=== PATIENT | male | born 1980 | race Caucasian/White ===

== ENCOUNTER 2017-08-14 14:39 | Inpatient (IN) | payer BC ==
[2017-08-14] MEDS ORDERED: RX INFO: IV CONTRAST WAS GIVEN 1 EACH MISC MISCELLANE PRN (15:39)
[2017-08-14] MEDS ORDERED: SODIUM CHLORIDE 0.9% 1,000 ML IV STA (15:39)
--- NOTE | 2017-08-14 15:42 | ED ---
General Adult HPI - General Chief complaint: Abdominal Pain Stated complaint: Abdominal pain Time Seen by Provider: 08/14/17 15:23 Source: patient, RN notes reviewed Mode of arrival: ambulatory Limitations: no limitations - History of Present Illness Initial comments: Patient is a pleasant 37-year-old male presenting to the emergency Department with abdominal discomfort. Patient did go to urgent care and was advised to come to emergency department for further evaluation. Patient has had no appetite since this morning. No nausea vomiting. Patient has had abdominal discomfort that started mild and has progressively worsened. Patient does have some improvement after Toradol by urgent care. Discomfort was more in the umbilical region however is now more right lower abdomen. No fever. Discomfort is positional. - Related Data Home Medications Medication Instructions Recorded Confirmed No Known Home Medications [No 08/14/17 08/14/17 Known Home Medications] Allergies Allergy/AdvReac Type Severity Reaction Status Date / Time ciprofloxacin [From Cipro] Allergy Unknown Verified 08/14/17 15:55 Review of Systems ROS Statement: Those systems with pertinent positive or pertinent negative responses have been documented in the HPI. ROS Other: All systems not noted in ROS Statement are negative. Constitutional: Denies: fever, chills Eyes: Denies: eye pain ENT: Denies: ear pain Respiratory: Denies: cough, dyspnea Cardiovascular: Denies: chest pain Endocrine: Denies: fatigue Gastrointestinal: Reports: abdominal pain. Denies: nausea, vomiting, diarrhea, constipation Genitourinary: Denies: dysuria, hematuria Musculoskeletal: Denies: back pain Skin: Denies: rash Neurological: Denies: weakness Past Medical History History of Any Multi-Drug Resistant Organisms: None Reported Additional Past Surgical History / Comment(s): Plastic surgery to his nose Past Psychological History: No Psychological Hx Reported Smoking Status: Never smoker Past Alcohol Use History: None Reported Past Drug Use History: None Reported General Exam Limitations: no limitations General appearance: alert, in no apparent distress Head exam: Present: atraumatic Eye exam: Present: normal appearance, PERRL ENT exam: Present: normal oropharynx Neck exam: Present: normal inspection Respiratory exam: Present: normal lung sounds bilaterally Cardiovascular Exam: Present: regular rate, normal rhythm Expanded Peripheral pulses: 2+: Dorsalis Pedis (R), Dorsalis Pedis (L) GI/Abdominal exam: Present: soft, tenderness (Mild to moderate tenderness right lower quadrant), guarding (Right lower quadrant), normal bowel sounds. Absent: distended, rebound, rigid, pulsatile mass Extremities exam: Present: normal inspection Back exam: Present: normal inspection. Absent: CVA tenderness (R) Neurological exam: Present: alert Psychiatric exam: Present: normal affect, normal mood Skin exam: Present: normal color Course Vital Signs 08/14/17 14:52 Temperature 98.4 F Pulse Rate 79 Respiratory 18 Rate Blood Pressure 151/91 O2 Sat by Pulse 99 Oximetry - Reevaluation(s) Reevaluation #1: 08/14/17 17:52 Patient reevaluated and updated. On-call surgery has been paged. 08/14/17 18:02 Case was discussed with Dr. Rabago, who will admit. Medical Decision Making - Lab Data Result diagrams: 08/14/17 16:35 08/14/17 16:35 Lab Results 08/14/17 08/14/17 08/14/17 Range/Units 16:35 16:35 16:35 WBC 13.9 H (3.8-10.6) k/uL RBC 5.05 (4.30-5.90) m/uL Hgb 16.3 (13.0-17.5) gm/dL Hct 45.8 (39.0-53.0) % MCV 90.7 (80.0-100.0) fL MCH 32.3 (25.0-35.0) pg MCHC 35.6 (31.0-37.0) g/dL RDW 13.1 (11.5-15.5) % Plt Count 208 (150-450) k/uL Neutrophils % 88 % Lymphocytes % 7 % Monocytes % 3 % Eosinophils % 1 % Basophils % 0 % Neutrophils # 12.2 H (1.3-7.7) k/uL Lymphocytes # 1.0 (1.0-4.8) k/uL Monocytes # 0.4 (0-1.0) k/uL Eosinophils # 0.2 (0-0.7) k/uL Basophils # 0.0 (0-0.2) k/uL PT 10.6 (9.0-12.0) sec INR 1.1 (<1.2) APTT 23.2 (22.0-30.0) sec Sodium 141 (137-145) mmol/L Potassium 4.5 (3.5-5.1) mmol/L Chloride 105 (98-107) mmol/L Carbon Dioxide 25 (22-30) mmol/L Anion Gap 11 mmol/L BUN 16 (9-20) mg/dL Creatinine 1.02 (0.66-1.25) mg/dL Est GFR (CKD-EPI)AfAm >90 (>60 ml/min/1.73 sqM) Est GFR (CKD-EPI)NonAf >90 (>60 ml/min/1.73 sqM) Glucose 85 (74-99) mg/dL Calcium 9.6 (8.4-10.2) mg/dL Total Bilirubin 1.5 H (0.2-1.3) mg/dL AST 49 (17-59) U/L ALT 83 H (21-72) U/L Alkaline Phosphatase 58 (38-126) U/L Total Protein 7.6 (6.3-8.2) g/dL Albumin 4.4 (3.5-5.0) g/dL Amylase 57 (30-110) U/L Lipase 111 (23-300) U/L Urine Color Urine Appearance (Clear) Urine pH (5.0-8.0) Ur Specific [place] (1.001-1.035) Urine Protein (Negative) Urine Glucose (UA) (Negative) Urine Ketones (Negative) Urine Blood (Negative) Urine Nitrite (Negative) Urine Bilirubin (Negative) Urine Urobilinogen (<2.0) mg/dL Ur Leukocyte Esterase (Negative) Urine RBC (0-5) /hpf Urine WBC (0-5) /hpf Ur Squamous Epith Cells (0-4) /hpf Amorphous Sediment (None) /hpf Urine Mucus (None) /hpf 08/14/17 Range/Units 16:35 WBC (3.8-10.6) k/uL RBC (4.30-5.90) m/uL Hgb (13.0-17.5) gm/dL Hct (39.0-53.0) % MCV (80.0-100.0) fL MCH (25.0-35.0) pg MCHC (31.0-37.0) g/dL RDW (11.5-15.5) % Plt Count (150-450) k/uL Neutrophils % % Lymphocytes % % Monocytes % % Eosinophils % % Basophils % % Neutrophils # (1.3-7.7) k/uL Lymphocytes # (1.0-4.8) k/uL Monocytes # (0-1.0) k/uL Eosinophils # (0-0.7) k/uL Basophils # (0-0.2) k/uL PT (9.0-12.0) sec INR (<1.2) APTT (22.0-30.0) sec Sodium (137-145) mmol/L Potassium (3.5-5.1) mmol/L Chloride (98-107) mmol/L Carbon Dioxide (22-30) mmol/L Anion Gap mmol/L BUN (9-20) mg/dL Creatinine (0.66-1.25) mg/dL Est GFR (CKD-EPI)AfAm (>60 ml/min/1.73 sqM) Est GFR (CKD-EPI)NonAf (>60 ml/min/1.73 sqM) Glucose (74-99) mg/dL Calcium (8.4-10.2) mg/dL Total Bilirubin (0.2-1.3) mg/dL AST (17-59) U/L ALT (21-72) U/L Alkaline Phosphatase (38-126) U/L Total Protein (6.3-8.2) g/dL Albumin (3.5-5.0) g/dL Amylase (30-110) U/L Lipase (23-300) U/L Urine Color Yellow Urine Appearance Cloudy (Clear) Urine pH 5.5 (5.0-8.0) Ur Specific [place] 1.021 (1.001-1.035) Urine Protein Negative (Negative) Urine Glucose (UA) Negative (Negative) Urine Ketones 1+ H (Negative) Urine Blood Negative (Negative) Urine Nitrite Negative (Negative) Urine Bilirubin Negative (Negative) Urine Urobilinogen <2.0 (<2.0) mg/dL Ur Leukocyte Esterase Negative (Negative) Urine RBC 1 (0-5) /hpf Urine WBC <1 (0-5) /hpf Ur Squamous Epith Cells <1 (0-4) /hpf Amorphous Sediment Rare H (None) /hpf Urine Mucus Rare H (None) /hpf - Radiology Data Radiology results: report reviewed (Computed tomography scan positive for appendicitis) Disposition Clinical Impression: Acute appendicitis Disposition: ADMITTED IP TO THIS HOSP Referrals: None,Stated [Primary Care Provider] - 1-2 days Decision Time: 18:02
[2017-08-14 16:49] LABS: Amorphous Sediment,Urine Rare /hpf; Appearance,Urine Cloudy (Clear); Bilirubin,Urine Negative (Negative); Blood,Urine Negative (Negative); Color,Urine Yellow; Glucose,Urine (UA) Negative (Negative); Ketones,Urine 1+ (Negative); Leukocyte Esterase,Urine Negative (Negative); Mucus,Urine Rare /hpf; Nitrite,Urine Negative (Negative); PH, Urine 5.5 (5.0-8.0); Protein,Urine Negative (Negative); RBC,Urine 1 /hpf (0-5); Specific Gravity,Urine 1.021 (1.001-1.035); Squamous Epithelial Cell,Urine <1 /hpf (0-4); Urobilinogen,Urine <2.0 mg/dL (<2.0); WBC,Urine <1 /hpf (0-5)
[2017-08-14 16:51] LABS: Basophils % (A) 0 %; Eosinophils # (A) 0.2 k/uL (0-0.7); Eosinophils % (A) 1 %; HCT 45.8 % (39.0-53.0); HGB 16.3 gm/dL (13.0-17.5); Lymphocytes % (A) 7 %; MCH 32.3 pg (25.0-35.0); MCHC 35.6 g/dL (31.0-37.0); MCV 90.7 fL (80.0-100.0); Mean Platelet Volume 7.2; Monocytes # (A) 0.4 k/uL (0-1.0); Monocytes % (A) 3 %; Neutrophils # (A) 12.2 k/uL (1.3-7.7); Neutrophils % (A) 88 %; Platelet Count 208 k/uL (150-450); RBC 5.05 m/uL (4.30-5.90); RDW 13.1 % (11.5-15.5); WBC 13.9 k/uL (3.8-10.6)
[2017-08-14 16:59] LABS: INR 1.1 (<1.2); Partial Thromboplastin Time 23.2 sec (22.0-30.0); Prothrombin Time 10.6 sec (9.0-12.0)
[2017-08-14 17:03] LABS: ALT 83 U/L (21-72); AST 49 U/L (17-59); Albumin 4.4 g/dL (3.5-5.0); Alkaline Phosphatase 58 U/L (38-126); Amylase 57 U/L (30-110); Anion Gap 11 mmol/L; Blood Urea Nitrogen 16 mg/dL (9-20); Calcium 9.6 mg/dL (8.4-10.2); Carbon Dioxide 25 mmol/L (22-30); Chloride 105 mmol/L (98-107); Glucose 85 mg/dL (74-99); Lipase 111 U/L (23-300); Potassium 4.5 mmol/L (3.5-5.1); Sodium 141 mmol/L (137-145); Total Bilirubin 1.5 mg/dL (0.2-1.3); Total Protein 7.6 g/dL (6.3-8.2)
--- NOTE | 2017-08-14 17:45 | CT ---
EXAMINATION TYPE: CT abdomen pelvis w con DATE OF EXAM: 08/14/2017 COMPARISON: NONE HISTORY: Right lower quadrant pain x today. CT DLP: 1968.7 mGycm. Automated exposure control for dose reduction was used. TECHNIQUE: Helical acquisition of images was performed from the lung bases through the pelvis. CONTRAST: Performed without Oral Contrast and with IV Contrast, patient injected with 100 mL of Isovu e M300. FINDINGS: LUNG BASES: No significant abnormality is appreciated. LIVER/GB: No significant abnormality is appreciated. PANCREAS: No significant abnormality is seen. SPLEEN: No significant abnormality is seen. ADRENALS: No significant abnormality is seen. KIDNEYS: No significant abnormality is seen. PERITONEAL CAVITY: Negative. RETROPERITONEAL ADENOPATHY: None visualized REPRODUCTIVE ORGANS: No significant abnormality is seen URINARY BLADDER: No significant abnormality is seen. PELVIC ADENOPATHY: None visualized. OSSEOUS STRUCTURES: No significant abnormality is seen. BOWEL: The appendix is dilated up to 18 mm, top normal caliber is 6 mm. Its margins are indistinct, and high attenuation within suggestive and fibula. There is a mild periappendiceal reticulation consi stent with edematous change. There is no evidence of rupture. The appendix is retrocecal and lies at the level of the right superior iliac crest. OTHER: The vasculature of the abdomen and pelvis is unremarkable. IMPRESSION: POSITIVE FOR ACUTE NONCOMPLICATED APPENDICITIS.
[2017-08-14] MEDS ORDERED: MORPHINE SULFATE/PF 10MG/10ML VL IVP STA (17:51)
[2017-08-14] MEDS ORDERED: MORPHINE SULFATE/PF 10MG/10ML VL IV PRN ×2 (18:02→19:57)
[2017-08-14] MEDS ORDERED: ONDANSETRON 4 MG/2 ML VIAL IVP PRN (18:02)
[2017-08-14] MEDS ORDERED: NALOXONE 0.4 MG/ML 1 ML VIAL IV PRN (18:02)
[2017-08-14] MEDS: ONDANSETRON 4 MG/2 ML VIAL IVP STA ×2 (18:12→20:48)
[2017-08-14] MEDS: SODIUM CHLORIDE 0.9% 1,000 ML IV SCH (18:15)
[2017-08-14] MEDS ORDERED: ERTAPENEM 1 GM in SODIUM CHLORIDE 0.9% 50 ML IVPB STA (18:41)
[2017-08-14] MEDS ORDERED: fentaNYL (PF) 50 MCG/ML 20 ML VIAL IVP PRN (18:47)
[2017-08-14] MEDS ORDERED: LACTATED RINGERS 1,000 ML IV SCH (19:00)
[2017-08-14] MEDS ORDERED: SUCCINYLCHOLINE CHLORIDE VIAL 200 MG/10 ML VIAL IV ONE (19:03)
[2017-08-14] MEDS ORDERED: fentaNYL (PF) 50 MCG/ML 2 ML AMP ONE (19:03)
[2017-08-14] MEDS ORDERED: ONDANSETRON 4 MG/2 ML VIAL ONE (19:03)
[2017-08-14] MEDS ORDERED: ROCURONIUM BROMIDE 10 MG/ML 10 ML VIAL IV ONE (19:03)
[2017-08-14] MEDS ORDERED: IV FLUID CONTINUATION 1,000 ML IV ONE (19:03)
[2017-08-14] MEDS ORDERED: MIDAZOLAM 2 MG/2 ML VIAL ONE (19:03)
[2017-08-14] MEDS ORDERED: PROPOFOL 10 MG/ML 20 ML VIAL IV ONE (19:03)
[2017-08-14] MEDS ORDERED: MORPHINE SULFATE 10 MG/ML SYRINGE ONE (19:03)
[2017-08-14] MEDS ORDERED: LIDOCAINE 1% INJ 10MG/ML (20 ML MDV) ONE (19:03)
[2017-08-14] MEDS ORDERED: KETOROLAC 30 MG/ML 1 ML VIAL ONE (19:03)
[2017-08-14] MEDS ORDERED: GLYCOPYRROLATE 0.2 MG/ML 2 ML VIAL ONE (19:03)
--- NOTE | 2017-08-14 19:07 | P.GSHP ---
History of Present Illness H&P Date: 08/14/17 Chief Complaint: abdominal pain The patient's a 37-year-old man who was at work today. About 11:00 he started getting discomfort in the right lower quadrant. He went to the restroom and tried to have a bowel movement. It did not help however. It got worse little later in the again tried to have a bowel movement this without success. Pain progressively got worse. He went to the urgent care. He was given some Toradol which did help the pain. He then came here and a computed tomography scan was suggestive of acute appendicitis. No fevers or chills. No nausea or vomiting. No previous episodes of anything like this. No previous abdominal surgery. - Review of Systems All systems: negative Past Medical History History of Any Multi-Drug Resistant Organisms: None Reported Additional Past Surgical History / Comment(s): Plastic surgery to his nose Past Psychological History: No Psychological Hx Reported Smoking Status: Never smoker Past Alcohol Use History: None Reported Past Drug Use History: None Reported Medications and Allergies Home Medications Medication Instructions Recorded Confirmed Type No Known Home Medications [No 08/14/17 08/14/17 History Known Home Medications] Allergies Allergy/AdvReac Type Severity Reaction Status Date / Time ciprofloxacin [From Cipro] Allergy Unknown Verified 08/14/17 15:55 Surgical - Exam Osteopathic Statement: *. No significant issues noted on an osteopathic structural exam other than those noted in the History and Physical/Consult. Vital Signs Temp Pulse Resp BP Pulse Ox 98.4 F 79 18 151/91 99 08/14/17 14:52 08/14/17 14:52 08/14/17 14:52 08/14/17 14:52 08/14/17 14:52 - General well developed, well nourished, no distress - Eyes normal ocular movement - ENT normal mucosa, no congestion - Neck trachea midline - Respiratory normal expansion, normal respiratory effort, clear to auscultation - Cardiovascular Rhythm: regular Abnormal Heart Sounds: no systolic murmur - Abdomen Abdomen: soft, tender (Right lower quadrant), no rigid, no rebound, no distended Hernia: no umbilical - Psychiatric oriented to time, oriented to person, oriented to place, speech is normal, memory intact Results - Labs 08/14/17 16:35 08/14/17 16:35 Abnormal Lab Results - Last 24 Hours (Table) 08/14/17 08/14/17 08/14/17 Range/Units 16:35 16:35 16:35 WBC 13.9 H (3.8-10.6) k/uL Neutrophils # 12.2 H (1.3-7.7) k/uL Total Bilirubin 1.5 H (0.2-1.3) mg/dL ALT 83 H (21-72) U/L Urine Ketones 1+ H (Negative) Amorphous Sediment Rare H (None) /hpf Urine Mucus Rare H (None) /hpf Diabetes panel 08/14/17 Range/Units 16:35 Sodium 141 (137-145) mmol/L Potassium 4.5 (3.5-5.1) mmol/L Chloride 105 (98-107) mmol/L Carbon Dioxide 25 (22-30) mmol/L BUN 16 (9-20) mg/dL Creatinine 1.02 (0.66-1.25) mg/dL Glucose 85 (74-99) mg/dL Calcium 9.6 (8.4-10.2) mg/dL AST 49 (17-59) U/L ALT 83 H (21-72) U/L Alkaline Phosphatase 58 (38-126) U/L Total Protein 7.6 (6.3-8.2) g/dL Albumin 4.4 (3.5-5.0) g/dL Calcium panel 08/14/17 Range/Units 16:35 Calcium 9.6 (8.4-10.2) mg/dL Albumin 4.4 (3.5-5.0) g/dL Pituitary panel 08/14/17 Range/Units 16:35 Sodium 141 (137-145) mmol/L Potassium 4.5 (3.5-5.1) mmol/L Chloride 105 (98-107) mmol/L Carbon Dioxide 25 (22-30) mmol/L BUN 16 (9-20) mg/dL Creatinine 1.02 (0.66-1.25) mg/dL Glucose 85 (74-99) mg/dL Calcium 9.6 (8.4-10.2) mg/dL Adrenal panel 08/14/17 Range/Units 16:35 Sodium 141 (137-145) mmol/L Potassium 4.5 (3.5-5.1) mmol/L Chloride 105 (98-107) mmol/L Carbon Dioxide 25 (22-30) mmol/L BUN 16 (9-20) mg/dL Creatinine 1.02 (0.66-1.25) mg/dL Glucose 85 (74-99) mg/dL Calcium 9.6 (8.4-10.2) mg/dL Total Bilirubin 1.5 H (0.2-1.3) mg/dL AST 49 (17-59) U/L ALT 83 H (21-72) U/L Alkaline Phosphatase 58 (38-126) U/L Total Protein 7.6 (6.3-8.2) g/dL Albumin 4.4 (3.5-5.0) g/dL - Imaging CT scan - chest: report reviewed, image reviewed Assessment and Plan (1) Acute appendicitis Current Visit: Yes Status: Acute Code(s): K35.80 - UNSPECIFIED ACUTE APPENDICITIS SNOMED Code(s): 86284394 Plan: Laparoscopic appendectomy, possible open. THe procedure, risks and complications were discussed. Questions were encouraged and answered.
[2017-08-14] MEDS ORDERED: BUPIVACAINE (PF) 0.25% 30 ML VIAL SQ ONE (19:26)
[2017-08-14] MEDS ORDERED: LACTATED RINGERS 1,000 ML IV ONE (19:43)
[2017-08-14] MEDS ORDERED: HYDROcodone/APAP 5-325MG 1 EACH TAB PO PRN ×2 (19:55)
--- NOTE | 2017-08-14 19:55 | P.OP ---
Date of Procedure: 08/14/17 Preoperative Diagnosis: Appendicitis Postoperative Diagnosis: Acute suppurative appendicitis with perforation Procedure(s) Performed: Laparoscopic appendectomy Anesthesia: RANDY Surgeon: Nadia Velazquez Estimated Blood Loss (ml): 10 Pathology: other (Appendix) Condition: stable Disposition: PACU Indications for Procedure: The patient presented with abdominal pain. Computed tomography scan was suggestive of acute appendicitis Operative Findings: Acute appendicitis with localized peritonitis. Fibrinous exudate was present on the appendix. It did perforate with manipulation. It looks like he may have small indirect inguinal hernias Description of Procedure: The patient was taken to the operative suite where he is prepped and draped in the usual sterile manner under a general endotracheal anesthetic. An infraumbilical incision was made. A varies needle was placed into the abdominal cavity. Pneumoperitoneum was established with CO2 gas. Sites are chosen for accessory trochars needs are placed through small skin incisions. The abdominal and pelvic contents were examined. The liver, diaphragm, large and small bowel were grossly normal where they were seen. The appendix was markedly dilated. The mesentery of the appendix was taken down with harmonic scissors to the base. The base of the appendix appeared pink and healthy. It was ligated with 0 PDS Endoloops 2. Then transected and placed into a specimen retrieval bag. The pelvis, paracolic gutter, subhepatic space were then irrigated and aspirated. The pneumoperitoneum was then released. The trochars were removed. The specimen retrieval bag was removed through the umbilical port site. The fascia at the umbilicus was closed with 0 Vicryl. The skin incisions were closed with 4-0 Vicryl in a subcuticular manner. Steri- Strips and dressings were applied. He tolerated the procedure without difficulty and was taken recovery room in satisfactory condition. According to or personnel, all counts were correct.
[2017-08-14] MEDS: KETOROLAC 30 MG/ML 1 ML VIAL IVP SCH (22:01)
[2017-08-14] MEDS: FAMOTIDINE 20 MG TAB PO SCH (23:36)
[2017-08-14] MEDS: AMPICILLIN-SULBACTAM 3 GM in SODIUM CHLORIDE 0.9% 100 ML IVPB SCH (23:36)
[2017-08-15] MEDS: KETOROLAC 30 MG/ML 1 ML VIAL IVP SCH ×3 (03:37→13:43)
[2017-08-15] MEDS: SODIUM CHLORIDE 0.9% 1,000 ML IV SCH ×2 (04:28→13:42)
[2017-08-15 06:53] LABS: HCT 42.7 % (39.0-53.0); HGB 14.3 gm/dL (13.0-17.5); MCH 30.8 pg (25.0-35.0); MCHC 33.5 g/dL (31.0-37.0); MCV 91.9 fL (80.0-100.0); Mean Platelet Volume 7.6; Platelet Count 181 k/uL (150-450); RBC 4.65 m/uL (4.30-5.90); RDW 13.2 % (11.5-15.5); WBC 13.3 k/uL (3.8-10.6)
[2017-08-15] MEDS: AMPICILLIN-SULBACTAM 3 GM in SODIUM CHLORIDE 0.9% 100 ML IVPB SCH ×2 (07:14→16:00)
[2017-08-15 07:50] LABS: Band Neutrophils % 6 %; Lymphocytes # (M) 0.27 k/uL (1.0-4.8); Neutrophils % (M) 86 %; Nucleated Red Blood Cells 0 /100 WBC (0-0); Total Cells Counted 100
[2017-08-15] MEDS: FAMOTIDINE 20 MG TAB PO SCH (09:19)
--- NOTE | 2017-08-15 10:28 | P.PN ---
Subjective Progress Note Date: 08/15/17 Principal diagnosis: Appendicitis The patient's postoperative day 1 from a laparoscopic appendectomy. He is complaining of some discomfort with a deep breath and discomfort on the right side. Did not eat any breakfast. No nausea or vomiting. He is up to a chair. Objective - Vital Signs Vital signs: Vital Signs Temp 98.3 F 08/15/17 07:08 Pulse 90 08/15/17 09:28 Resp 20 08/15/17 08:00 BP 113/74 08/15/17 09:28 Pulse Ox 94 L 08/15/17 09:28 Intake & Output 08/14/17 08/15/17 08/15/17 18:59 06:59 18:59 Intake Total 1950 Output Total 535 Balance 1415 Weight 122.47 kg Intake: IV 1250 Intake, IV Titration 700 Amount Ampicillin-Sulbactam 3 gm 100 In Sodium Chloride 0.9% 100 ml @ 100 mls/hr IVPB Q8HR [facility] Rx#:[id number] Sodium Chloride 0.9% 1, 600 000 ml @ 100 mls/hr IV . Q10H [facility]A Rx#:[id number] Output: Urine 525 Estimated Blood Loss 10 Other: Voiding Method Toilet Urinal - Constitutional General appearance: Present: cooperative, no acute distress - Respiratory Respiratory: bilateral: CTA - Gastrointestinal General gastrointestinal: Present: normal bowel sounds, soft Localized gastrointestinal: surgical scar: diffuse (Dressings intact) - Labs CBC & Chem 7: 08/15/17 06:16 08/14/17 16:35 Labs: Abnormal Lab Results - Last 24 Hours (Table) 08/14/17 08/14/17 08/14/17 Range/Units 16:35 16:35 16:35 WBC 13.9 H (3.8-10.6) k/uL Neutrophils # 12.2 H (1.3-7.7) k/uL Neutrophils # (Manual) (1.3-7.7) k/uL Lymphocytes # (Manual) (1.0-4.8) k/uL Total Bilirubin 1.5 H (0.2-1.3) mg/dL ALT 83 H (21-72) U/L Urine Ketones 1+ H (Negative) Amorphous Sediment Rare H (None) /hpf Urine Mucus Rare H (None) /hpf 03/22/18 Range/Units 06:16 WBC 13.3 H (3.8-10.6) k/uL Neutrophils # (1.3-7.7) k/uL Neutrophils # (Manual) 12.20 H (1.3-7.7) k/uL Lymphocytes # (Manual) 0.27 L (1.0-4.8) k/uL Total Bilirubin (0.2-1.3) mg/dL ALT (21-72) U/L Urine Ketones (Negative) Amorphous Sediment (None) /hpf Urine Mucus (None) /hpf Assessment and Plan (1) Acute appendicitis Current Visit: Yes Status: Acute Code(s): K35.80 - UNSPECIFIED ACUTE APPENDICITIS SNOMED Code(s): 45015053 Plan: We'll monitor the patient today. If his oral intake increases and his pain is under better control, we'll discharge him later today. Otherwise I'll see him in the morning. Due to the acute appendicitis with a intraoperative perforation , we'll keep him on antibiotics. He was instructed as far as signs to look for which could indicate a infection. Also educated about DVT prophylaxis as his plan is to drive to [place] in about 10 days. Questions were encouraged and answered.
[2017-08-15 14:28] VITALS: BP 116/74; PULSE 85; RESP 16; TEMP 98.2
== END 2017-08-15 17:45 | disposition home or self-care (01) | DRG 340 ==
LOC: EC 14:39 → 3SUR 18:03 → OBSVTOIN 08-15 15:58
PROVIDERS: ADMIT Surgery; ATTEND Surgery
PROC: 0DTJ4ZZ Resection of Appendix, Percutaneous Endoscopic Approach (ICD-10-PCS; principal; 2017-08-15)
DX: K35.3 Acute appendicitis with localized peritonitis (principal); Z88.1 Allergy status to other antibiotic agents
CPT/HCPCS: 36415; 74177; 80053; 81001; 82150; 83690; 85025; 85610; 85730; 88304; 96374; 96375; 99285

== ENCOUNTER 2017-08-16 03:42 | Inpatient (IN) | payer BC ==
[2017-08-16] MEDS ORDERED: SODIUM CHLORIDE 0.9% 1,000 ML IV STA (04:04)
[2017-08-16] MEDS ORDERED: MORPHINE SULFATE 4 MG/ML SYRINGE IV STA ×2 (04:05→07:13)
[2017-08-16] MEDS: MORPHINE SULFATE/PF 10MG/10ML VL IV STA ×2 (04:18→07:20)
[2017-08-16 04:28] LABS: Basophils % (A) 0 %; Eosinophils # (A) 0.1 k/uL (0-0.7); Eosinophils % (A) 1 %; HCT 41.4 % (39.0-53.0); HGB 15.2 gm/dL (13.0-17.5); Lymphocytes # (A) 0.9 k/uL (1.0-4.8); Lymphocytes % (A) 6 %; MCH 32.7 pg (25.0-35.0); MCHC 36.6 g/dL (31.0-37.0); MCV 89.3 fL (80.0-100.0); Mean Platelet Volume 7.7; Monocytes # (A) 0.5 k/uL (0-1.0); Monocytes % (A) 4 %; Neutrophils # (A) 13.6 k/uL (1.3-7.7); Neutrophils % (A) 89 %; Platelet Count 190 k/uL (150-450); RBC 4.64 m/uL (4.30-5.90); WBC 15.3 k/uL (3.8-10.6)
[2017-08-16 04:41] LABS: ALT 47 U/L (21-72); AST 20 U/L (17-59); Albumin 3.7 g/dL (3.5-5.0); Alkaline Phosphatase 50 U/L (38-126); Anion Gap 12 mmol/L; Blood Urea Nitrogen 17 mg/dL (9-20); Calcium 9.6 mg/dL (8.4-10.2); Carbon Dioxide 23 mmol/L (22-30); Chloride 103 mmol/L (98-107); Glucose 127 mg/dL (74-99); Potassium 3.8 mmol/L (3.5-5.1); Sodium 138 mmol/L (137-145); Total Bilirubin 2.7 mg/dL (0.2-1.3); Total Protein 6.8 g/dL (6.3-8.2)
--- NOTE | 2017-08-16 04:47 | XR ---
EXAM: XR Chest, 2 Views CLINICAL HISTORY: Reason: cough, fever TECHNIQUE: Frontal and lateral views of the chest. COMPARISON: None FINDINGS: Hardware: None. Lungs/pleura: Low lung volumes with bibasilar atelectasis versus pneumonia. No pleural effusion or pneumothorax. Heart/mediastinum: Mild enlargement of the cardiac silhouette may be accentuated by low lung volumes. Soft tissues: Unremarkable. Bones: No acute fracture. Upper abdomen: Normal. IMPRESSION: Low lung volumes with bibasilar atelectasis versus pneumonia.
[2017-08-16 05:58] LABS: Appearance,Urine Clear (Clear); Bilirubin,Urine Negative (Negative); Blood,Urine Negative (Negative); Color,Urine Yellow; Glucose,Urine (UA) Negative (Negative); Ketones,Urine 2+ (Negative); Leukocyte Esterase,Urine Negative (Negative); Nitrite,Urine Negative (Negative); PH, Urine 6.5 (5.0-8.0); Protein,Urine Trace (Negative); Specific Gravity,Urine 1.013 (1.001-1.035); Urobilinogen,Urine <2.0 mg/dL (<2.0)
[2017-08-16] MEDS ORDERED: AZITHROMYCIN 500 MG TAB PO STA (06:16)
[2017-08-16] MEDS ORDERED: cefTRIAXone IN SWFI 1,000 MG/10 ML SYRINGE IVP STA (06:16)
--- NOTE | 2017-08-16 07:02 | ED ---
Fever HPI - General Chief Complaint: Fever Stated Complaint: fever Time Seen by Provider: 08/16/17 03:52 Source: patient Mode of arrival: wheelchair Limitations: no limitations - History of Present Illness Initial Comments: This patient is a 37-year-old man who presents to be evaluated for feeling hot and cold, coughing, as well as having some abdominal pain and a little bit of nausea. Patient states that this is all come on over the past night. He had been seen here on 08/14 and had a laparoscopic appendectomy. The patient stated that he did try taking the [place] that was prescribed but it hasn't really helped how he is feeling. MD Complaint: fever -: hour(s) Temperature Source: subjective Associated Symptoms: chills, cough, abdominal pain Treatments Prior to Arrival: none - Related Data Home Medications Medication Instructions Recorded Confirmed Amoxicillin/Potassium Clav 1 tab PO Q12HR 08/16/17 08/16/17 [Augmentin 875-125 Tablet] Previous Rx's Medication Instructions Recorded HYDROcodone/APAP 5-325MG [[place] 1 - 2 tab PO Q4H PRN #30 tab 08/15/17 5-325] Naproxen [Naprosyn] 375 mg PO Q12HR #30 tablet 08/15/17 Docusate [Colace] 100 mg PO BID PRN #60 capsule 08/17/17 Polyethylene Glycol 3350 [Miralax] 17 gm PO DAILY PRN #15 packet 08/17/17 Allergies Allergy/AdvReac Type Severity Reaction Status Date / Time ciprofloxacin [From Cipro] Allergy Unknown Verified 08/16/17 07:10 Review of Systems ROS Statement: Those systems with pertinent positive or pertinent negative responses have been documented in the HPI. ROS Other: All systems not noted in ROS Statement are negative. Constitutional: Reports: fever, chills Respiratory: Reports: cough. Denies: dyspnea, wheezes, hemoptysis Cardiovascular: Denies: chest pain, palpitations, edema Gastrointestinal: Reports: abdominal pain, nausea. Denies: vomiting, diarrhea Genitourinary: Denies: dysuria, hematuria, testicular pain Musculoskeletal: Denies: back pain Skin: Denies: rash Neurological: Denies: headache, weakness, numbness Past Medical History Additional Past Medical History / Comment(s): psoriasis, History of Any Multi-Drug Resistant Organisms: None Reported Past Surgical History: Appendectomy Additional Past Surgical History / Comment(s): Plastic surgery to his nose, Past Anesthesia/Blood Transfusion Reactions: No Reported Reaction Past Psychological History: No Psychological Hx Reported Smoking Status: Former smoker Past Alcohol Use History: Occasional Past Drug Use History: None Reported - Past Family History Mother Family Medical History: Hyperlipidemia, Hypertension, Vascular Disorder Additional Family Medical History / Comment(s): Hypothyroid and depression. Father Family Medical History: Coronary Artery Disease (CAD), Diabetes Mellitus Additional Family Medical History / Comment(s): Father of complications after CABG General Exam Limitations: no limitations General appearance: alert, in no apparent distress Head exam: Present: atraumatic, normocephalic Eye exam: Present: normal appearance. Absent: scleral icterus, conjunctival injection ENT exam: Present: mucous membranes dry Neck exam: Present: normal inspection, full ROM Respiratory exam: Present: normal lung sounds bilaterally, rales (Bilateral bases). Absent: respiratory distress, wheezes, rhonchi, stridor Cardiovascular Exam: Present: normal rhythm, tachycardia (Rate approximately 104 at my exam), normal heart sounds. Absent: systolic murmur, diastolic murmur , rubs, gallop GI/Abdominal exam: Present: soft, other (The patient's surgical incisions have dressings are clean dry and intact. There is no palpable warmth or erythema. ) . Absent: distended, tenderness, guarding, rebound, mass Extremities exam: Present: normal inspection, normal capillary refill. Absent: pedal edema, calf tenderness Back exam: Present: normal inspection. Absent: CVA tenderness (R), CVA tenderness (L) Neurological exam: Present: alert Skin exam: Present: warm, dry, intact, normal color. Absent: rash, cyanosis, diaphoretic, erythema Course Vital Signs 08/16/17 08/16/17 08/16/17 03:45 06:33 07:58 Temperature 99.1 F 98.5 F Pulse Rate 105 H 103 H 102 H Respiratory 18 18 16 Rate Blood Pressure 146/80 157/92 157/87 O2 Sat by Pulse 91 L 96 Oximetry 08/16/17 08:37 Temperature Pulse Rate 102 H Respiratory 16 Rate Blood Pressure 159/80 O2 Sat by Pulse 95 Oximetry Medical Decision Making - Lab Data Result diagrams: 08/19/17 07:35 08/19/17 07:35 Lab Results 08/16/17 08/16/17 08/16/17 Range/Units 04:03 04:03 04:03 WBC 15.3 H (3.8-10.6) k/uL RBC 4.64 (4.30-5.90) m/uL Hgb 15.2 (13.0-17.5) gm/dL Hct 41.4 (39.0-53.0) % MCV 89.3 (80.0-100.0) fL MCH 32.7 (25.0-35.0) pg MCHC 36.6 (31.0-37.0) g/dL RDW 13.0 (11.5-15.5) % Plt Count 190 (150-450) k/uL Neutrophils % 89 % Lymphocytes % 6 % Monocytes % 4 % Eosinophils % 1 % Basophils % 0 % Neutrophils # 13.6 H (1.3-7.7) k/uL Lymphocytes # 0.9 L (1.0-4.8) k/uL Monocytes # 0.5 (0-1.0) k/uL Eosinophils # 0.1 (0-0.7) k/uL Basophils # 0.0 (0-0.2) k/uL Sodium 138 (137-145) mmol/L Potassium 3.8 (3.5-5.1) mmol/L Chloride 103 (98-107) mmol/L Carbon Dioxide 23 (22-30) mmol/L Anion Gap 12 mmol/L BUN 17 (9-20) mg/dL Creatinine 0.90 (0.66-1.25) mg/dL Est GFR (CKD-EPI)AfAm >90 (>60 ml/min/1.73 sqM) Est GFR (CKD-EPI)NonAf >90 (>60 ml/min/1.73 sqM) Glucose 127 H (74-99) mg/dL Plasma Lactic Acid Raj 1.2 (0.7-2.0) mmol/L Calcium 9.6 (8.4-10.2) mg/dL Total Bilirubin 2.7 H (0.2-1.3) mg/dL Conjugated Bilirubin (0.0-0.3) mg/dL Unconjugated Bilirubin (0.0-1.1) mg/dL Delta Bilirubin (0.0-0.2) mg/dL AST 20 (17-59) U/L ALT 47 (21-72) U/L Alkaline Phosphatase 50 (38-126) U/L Total Protein 6.8 (6.3-8.2) g/dL Albumin 3.7 (3.5-5.0) g/dL Urine Color Urine Appearance (Clear) Urine pH (5.0-8.0) Ur Specific Erick (1.001-1.035) Urine Protein (Negative) Urine Glucose (UA) (Negative) Urine Ketones (Negative) Urine Blood (Negative) Urine Nitrite (Negative) Urine Bilirubin (Negative) Urine Urobilinogen (<2.0) mg/dL Ur Leukocyte Esterase (Negative) 08/16/17 08/16/17 Range/Units 04:03 05:46 WBC (3.8-10.6) k/uL RBC (4.30-5.90) m/uL Hgb (13.0-17.5) gm/dL Hct (39.0-53.0) % MCV (80.0-100.0) fL MCH (25.0-35.0) pg MCHC (31.0-37.0) g/dL RDW (11.5-15.5) % Plt Count (150-450) k/uL Neutrophils % % Lymphocytes % % Monocytes % % Eosinophils % % Basophils % % Neutrophils # (1.3-7.7) k/uL Lymphocytes # (1.0-4.8) k/uL Monocytes # (0-1.0) k/uL Eosinophils # (0-0.7) k/uL Basophils # (0-0.2) k/uL Sodium (137-145) mmol/L Potassium (3.5-5.1) mmol/L Chloride (98-107) mmol/L Carbon Dioxide (22-30) mmol/L Anion Gap mmol/L BUN (9-20) mg/dL Creatinine (0.66-1.25) mg/dL Est GFR (CKD-EPI)AfAm (>60 ml/min/1.73 sqM) Est GFR (CKD-EPI)NonAf (>60 ml/min/1.73 sqM) Glucose (74-99) mg/dL Plasma Lactic Acid Raj (0.7-2.0) mmol/L Calcium (8.4-10.2) mg/dL Total Bilirubin 2.7 H (0.2-1.3) mg/dL Conjugated Bilirubin 0.0 (0.0-0.3) mg/dL Unconjugated Bilirubin 1.7 H (0.0-1.1) mg/dL Delta Bilirubin 1.0 H (0.0-0.2) mg/dL AST (17-59) U/L ALT (21-72) U/L Alkaline Phosphatase (38-126) U/L Total Protein (6.3-8.2) g/dL Albumin (3.5-5.0) g/dL Urine Color Yellow Urine Appearance Clear (Clear) Urine pH 6.5 (5.0-8.0) Ur Specific Erick 1.013 (1.001-1.035) Urine Protein Trace H (Negative) Urine Glucose (UA) Negative (Negative) Urine Ketones 2+ H (Negative) Urine Blood Negative (Negative) Urine Nitrite Negative (Negative) Urine Bilirubin Negative (Negative) Urine Urobilinogen <2.0 (<2.0) mg/dL Ur Leukocyte Esterase Negative (Negative) Disposition Clinical Impression: Abdominal pain Disposition: ADMITTED IP TO THIS HOSP
[2017-08-16] MEDS ORDERED: PNEUMONIA PROTOCOL UTILIZED 1 EACH MISC PO PRN (07:03)
[2017-08-16] MEDS ORDERED: HYDROcodone/APAP 5-325MG 1 EACH TAB PO PRN ×2 (07:06→07:13)
[2017-08-16] MEDS ORDERED: MORPHINE SULFATE/PF 10MG/10ML VL ONE (07:17)
[2017-08-16] MEDS: SODIUM CHLORIDE 0.9% 1,000 ML IV SCH ×2 (07:22→17:38)
--- NOTE | 2017-08-16 10:33 | P.GSCN ---
History of Present Illness Consult date: 08/16/17 Reason for Consult: Post op fever History of present illness: The patient underwent a laparoscopic appendectomy Saturday. He was having some pain with inspiration, felt to be due to pneumoperitoneum. He was using his incentive spirometry, only doing about 1000 mL's. By he was feeling fairly well and was discharged home. He began having cough and fever through the night. The pain pills weren't helping his pain due to the coughing. He went to the emergency room this morning and was admitted. Complaining of fevers and chills. Incisional pain. Some nausea no vomiting. Was drinking okay yesterday. Review of Systems All systems: negative Past Medical History Past Medical History: Skin Disorder Additional Past Medical History / Comment(s): psoriasis, vertigo History of Any Multi-Drug Resistant Organisms: None Reported Past Surgical History: Appendectomy Additional Past Surgical History / Comment(s): 08/15/17 lap appy, rhinoplasty Past Anesthesia/Blood Transfusion Reactions: No Reported Reaction Past Psychological History: No Psychological Hx Reported Additional Psychological History / Comment(s): Pt lives in an apartment. He is independent. Smoking Status: Former smoker Past Alcohol Use History: Occasional Additional Past Alcohol Use History / Comment(s): Pt started smoking in 1995 and quit in 2007. Past Drug Use History: None Reported - Past Family History Mother Family Medical History: Hyperlipidemia, Hypertension, Vascular Disorder Additional Family Medical History / Comment(s): Hypothyroid and depression. Father Family Medical History: Coronary Artery Disease (CAD), Diabetes Mellitus Additional Family Medical History / Comment(s): Father of complications after CABG Medications and Allergies Home Medications Medication Instructions Recorded Confirmed Type HYDROcodone/APAP 5-325MG [[place] 1 - 2 tab PO Q4H PRN #30 tab 08/15/17 08/16/17 Rx 5-325] Naproxen [Naprosyn] 375 mg PO Q12HR #30 tablet 08/15/17 08/16/17 Rx Amoxicillin/Potassium Clav 1 tab PO Q12HR 08/16/17 08/16/17 History [Augmentin 875-125 Tablet] Allergies Allergy/AdvReac Type Severity Reaction Status Date / Time ciprofloxacin [From Cipro] Allergy Unknown Verified 08/16/17 07:10 Surgical - Exam Osteopathic Statement: *. No significant issues noted on an osteopathic structural exam other than those noted in the History and Physical/Consult. Vital Signs Temp Pulse Resp BP Pulse Ox 99.1 F 105 H 18 146/80 91 L 08/16/17 03:45 08/16/17 03:45 08/16/17 03:45 08/16/17 03:45 08/16/17 03:45 - General Appears uncomfortable, somewhat sedated from recent pain medication well developed, well nourished - Eyes normal ocular movement - Neck trachea midline - Respiratory clear to auscultation, other (Diminished breath sounds at the bases no wheezes or rhonchi) absent: wheezing, rales - Cardiovascular Rhythm: regular - Abdomen Abdomen: soft, bowel sounds, wound (No cellulitis) - Psychiatric oriented to time, oriented to person, oriented to place, speech is normal, memory intact Results - Labs 08/16/17 04:03 08/16/17 04:03 Abnormal Lab Results - Last 24 Hours (Table) 08/16/17 08/16/17 08/16/17 Range/Units 04:03 04:03 05:46 WBC 15.3 H (3.8-10.6) k/uL Neutrophils # 13.6 H (1.3-7.7) k/uL Lymphocytes # 0.9 L (1.0-4.8) k/uL Glucose 127 H (74-99) mg/dL Total Bilirubin 2.7 H (0.2-1.3) mg/dL Urine Protein Trace H (Negative) Urine Ketones 2+ H (Negative) Diabetes panel 08/16/17 Range/Units 04:03 Sodium 138 (137-145) mmol/L Potassium 3.8 (3.5-5.1) mmol/L Chloride 103 (98-107) mmol/L Carbon Dioxide 23 (22-30) mmol/L BUN 17 (9-20) mg/dL Creatinine 0.90 (0.66-1.25) mg/dL Glucose 127 H (74-99) mg/dL Calcium 9.6 (8.4-10.2) mg/dL AST 20 (17-59) U/L ALT 47 (21-72) U/L Alkaline Phosphatase 50 (38-126) U/L Total Protein 6.8 (6.3-8.2) g/dL Albumin 3.7 (3.5-5.0) g/dL Calcium panel 08/16/17 Range/Units 04:03 Calcium 9.6 (8.4-10.2) mg/dL Albumin 3.7 (3.5-5.0) g/dL Pituitary panel 08/16/17 Range/Units 04:03 Sodium 138 (137-145) mmol/L Potassium 3.8 (3.5-5.1) mmol/L Chloride 103 (98-107) mmol/L Carbon Dioxide 23 (22-30) mmol/L BUN 17 (9-20) mg/dL Creatinine 0.90 (0.66-1.25) mg/dL Glucose 127 H (74-99) mg/dL Calcium 9.6 (8.4-10.2) mg/dL Adrenal panel 08/16/17 Range/Units 04:03 Sodium 138 (137-145) mmol/L Potassium 3.8 (3.5-5.1) mmol/L Chloride 103 (98-107) mmol/L Carbon Dioxide 23 (22-30) mmol/L BUN 17 (9-20) mg/dL Creatinine 0.90 (0.66-1.25) mg/dL Glucose 127 H (74-99) mg/dL Calcium 9.6 (8.4-10.2) mg/dL Total Bilirubin 2.7 H (0.2-1.3) mg/dL AST 20 (17-59) U/L ALT 47 (21-72) U/L Alkaline Phosphatase 50 (38-126) U/L Total Protein 6.8 (6.3-8.2) g/dL Albumin 3.7 (3.5-5.0) g/dL - Imaging Chest x-ray: report reviewed, image reviewed Assessment and Plan (1) Atelectasis Current Visit: Yes Status: Acute Code(s): J98.11 - ATELECTASIS SNOMED Code (s): 45794019 (2) Leukocytosis Current Visit: Yes Status: Acute Code(s): D72.829 - ELEVATED WHITE BLOOD CELL COUNT, UNSPECIFIED SNOMED Code(s): 690872525 (3) Hyperbilirubinemia Current Visit: Yes Status: Acute Code(s): E80.6 - OTHER DISORDERS OF BILIRUBIN METABOLISM SNOMED Code(s): 94441692 Plan: I think his low-grade fever and cough are likely due to atelectasis. We'll order incentive spirometry. Encourage pulmonary toilet. He did have acute appendicitis with a perforation at the time of surgery. This was well irrigated. He's been on antibiotics. Check a direct and indirect bilirubin
[2017-08-16] MEDS ORDERED: POLYETHYLENE GLYCOL 3350 17 GM POWD.PACK PO PRN (10:36)
[2017-08-16] MEDS ORDERED: MAGNESIUM HYDROXIDE 2,400 MG/10 ML CUP PO PRN (10:36)
--- NOTE | 2017-08-16 10:43 | P.HPIM ---
History of Present Illness 37-year-old the gentleman with a recent right-sided cholecystectomy came in with complaints of abdominal pain lower abdomen without any dysuria. Chest x- ray showed atelectasis and do not believe patient has pneumonia as per the chest x-ray and the patient was started on antibiotics for pneumonia but the Rocephin will be continued's demise will be discontinued and metronidazole will be added as per recommendations from surgery for possible possible intra- abdominal process although we believe his abdominal pain is most related mostly related to constipation patient was complaining of 8/9 bilateral lower abdominal pain and abdominal is tympanic consistent with the constipation. Patient was complaining of subjective fevers although patient doesn't have any documented fevers here patient does have leukocytosis which is most probably reactive rather than infection. Patient has mildly elevated bilirubin because of which bilirubin will be repeated tomorrow. Vision any cough runny nose. Review of Systems REVIEW OF SYSTEMS: CONSTITUTIONAL: No fever, no malaise, no fatigue. HEENT: No recent visual problems or hearing problems. Denied any sore throat. CARDIOVASCULAR: No chest pain, orthopnea, PND, no palpitations, no syncope. PULMONARY: No shortness of breath, no cough, no hemoptysis. GASTROINTESTINAL: No diarrhea, no nausea, no vomiting, NEUROLOGICAL: No headaches, no weakness, no numbness. HEMATOLOGICAL: Denies any bleeding or petechiae. GENITOURINARY: Denies any burning micturition, frequency, or urgency. MUSCULOSKELETAL/RHEUMATOLOGICAL: Denies any joint pain, swelling, or any muscle pain. ENDOCRINE: Denies any polyuria or polydipsia. The rest of the 14-point review of systems is negative. Past Medical History Past Medical History: Skin Disorder Additional Past Medical History / Comment(s): psoriasis, vertigo History of Any Multi-Drug Resistant Organisms: None Reported Past Surgical History: Appendectomy Additional Past Surgical History / Comment(s): 08/15/17 lap appy, rhinoplasty Past Anesthesia/Blood Transfusion Reactions: No Reported Reaction Past Psychological History: No Psychological Hx Reported Additional Psychological History / Comment(s): Pt lives in an apartment. He is independent. Smoking Status: Former smoker Past Alcohol Use History: Occasional Additional Past Alcohol Use History / Comment(s): Pt started smoking in 1995 and quit in 2007. Past Drug Use History: None Reported - Past Family History Mother Family Medical History: Hyperlipidemia, Hypertension, Vascular Disorder Additional Family Medical History / Comment(s): Hypothyroid and depression. Father Family Medical History: Coronary Artery Disease (CAD), Diabetes Mellitus Additional Family Medical History / Comment(s): Father of complications after CABG Medications and Allergies Home Medications Medication Instructions Recorded Confirmed Type HYDROcodone/APAP 5-325MG [[place] 1 - 2 tab PO Q4H PRN #30 tab 08/15/17 08/16/17 Rx 5-325] Naproxen [Naprosyn] 375 mg PO Q12HR #30 tablet 08/15/17 08/16/17 Rx Amoxicillin/Potassium Clav 1 tab PO Q12HR 08/16/17 08/16/17 History [Augmentin 875-125 Tablet] Allergies Allergy/AdvReac Type Severity Reaction Status Date / Time ciprofloxacin [From Cipro] Allergy Unknown Verified 08/16/17 07:10 Physical Exam Vitals: Vital Signs Temp Pulse Resp BP Pulse Ox 08/16/17 08:37 102 H 16 159/80 95 08/16/17 07:58 98.5 F 102 H 16 157/87 08/16/17 06:33 103 H 18 157/92 96 08/16/17 03:45 99.1 F 105 H 18 146/80 91 L Intake and Output 08/15/17 08/16/17 08/16/17 22:59 06:59 14:59 Other: Weight 122.47 kg PHYSICAL EXAMINATION: GENERAL: The patient is alert and oriented x3, not in any acute distress. Well developed, well nourished. HEENT: Pupils are round and equally reacting to light. EOMI. No scleral icterus. No conjunctival pallor. Normocephalic, atraumatic. No pharyngeal erythema. No thyromegaly. CARDIOVASCULAR: S1 and S2 present. No murmurs, rubs, or gallops. PULMONARY: Chest is clear to auscultation, no wheezing or crackles. ABDOMEN: Abdomen is distended minimal subjective tenderness and bilateral lower abdominal quadrants sluggish bowel sounds. MUSCULOSKELETAL: No joint swelling or deformity. EXTREMITIES: No cyanosis, clubbing, or pedal edema. NEUROLOGICAL: Gross neurological examination did not reveal any focal deficits. SKIN: No rashes. Results CBC & Chem 7: 08/16/17 04:03 08/16/17 04:03 Labs: Abnormal Lab Results - Last 24 Hours (Table) 08/16/17 08/16/17 08/16/17 Range/Units 04:03 04:03 05:46 WBC 15.3 H (3.8-10.6) k/uL Neutrophils # 13.6 H (1.3-7.7) k/uL Lymphocytes # 0.9 L (1.0-4.8) k/uL Glucose 127 H (74-99) mg/dL Total Bilirubin 2.7 H (0.2-1.3) mg/dL Urine Protein Trace H (Negative) Urine Ketones 2+ H (Negative) Thrombosis Risk Factor Assmnt - Choose All That Apply Any of the Below Risk Factors Present?: Yes Each Factor Represents 1 point: Obesity (BMI >25) Other Risk Factors: Yes Each Risk Factor Represents 2 Points: Laparoscopic surgery Other congenital or acquired thrombophilia - If yes, enter type in comment: No Thrombosis Risk Factor Assessment Total Risk Factor Score: 3 Thrombosis Risk Factor Assessment Level: Moderate Risk Assessment and Plan Plan: -Abdominal pain: Related to constipation patient will be started on milk of magnesia and MiraLAX on as-needed basis. And the narcotic pain medications will be avoided and patient was started on ketorolac and GI prophylaxis. -Atelectasis patient was advised to to use incentive spirometry I do not believe patient has pneumonia at this time. All the antibiotics will be continued until the intra-abdominal source of infection is completely ruled out because of which patient is presently on Rocephin and metronidazole. -Status post appendectomy -Morbid obesity: Counseling was provided
[2017-08-16 10:58] LABS: Bilirubin,Unconjugated 1.7 mg/dL (0.0-1.1); Total Bilirubin 2.7 mg/dL (0.2-1.3)
[2017-08-16] MEDS: metroNIDAZOLE 500 MG TAB PO SCH ×3 (11:45→21:18)
[2017-08-16] MEDS: KETOROLAC 30 MG/ML 1 ML VIAL IVP PRN (12:56)
[2017-08-16] MEDS: FAMOTIDINE 20 MG TAB PO SCH (21:18)
[2017-08-17] MEDS: KETOROLAC 30 MG/ML 1 ML VIAL IVP PRN ×3 (02:39→20:38)
[2017-08-17] MEDS: SODIUM CHLORIDE 0.9% 1,000 ML IV SCH ×3 (02:40→23:23)
[2017-08-17] MEDS: cefTRIAXone IN SWFI 1,000 MG/10 ML SYRINGE IVP SCH (07:32)
[2017-08-17] MEDS: metroNIDAZOLE 500 MG TAB PO SCH ×2 (07:32→17:02)
[2017-08-17] MEDS: FAMOTIDINE 20 MG TAB PO SCH ×2 (07:32→20:20)
[2017-08-17 08:05] LABS: HCT 43.1 % (39.0-53.0); HGB 14.3 gm/dL (13.0-17.5); MCH 30.6 pg (25.0-35.0); MCHC 33.3 g/dL (31.0-37.0); Mean Platelet Volume 7.6; Platelet Count 225 k/uL (150-450); RBC 4.68 m/uL (4.30-5.90); WBC 12.9 k/uL (3.8-10.6)
[2017-08-17 08:11] LABS: ALT 36 U/L (21-72); AST 19 U/L (17-59); Albumin 3.1 g/dL (3.5-5.0); Alkaline Phosphatase 56 U/L (38-126); Anion Gap 11 mmol/L; Blood Urea Nitrogen 21 mg/dL (9-20); Calcium 8.7 mg/dL (8.4-10.2); Carbon Dioxide 25 mmol/L (22-30); Chloride 104 mmol/L (98-107); Glucose 110 mg/dL (74-99); Potassium 3.7 mmol/L (3.5-5.1); Sodium 140 mmol/L (137-145); Total Bilirubin 1.4 mg/dL (0.2-1.3)
[2017-08-17] MEDS ORDERED: AZITHROMYCIN 500 MG TAB PO SCH (09:00)
--- NOTE | 2017-08-17 11:53 | P.PN ---
Subjective 37-year-old status post cystectomy recently came back with abdominal pain lower and believed to be secondary to constipation patient also has atelectasis patient will be encouraged ablate patient started having nausea vomiting will obtain a abdominal x-ray and an NG tube to decompress of all patient probably has ileus. Avoid opiate analgesia we will use ketorolac for pain we'll increase R to 30 mg every 6 hourly if needed continue with the GI prophylaxis. Constitutional: Denied any fatigue denied any fever. Cardio vascular: denied any chest pain, palpitations Gastrointestinal as mentioned in HPI Pulmonary: Denied any shortness of breath cough Neurologic denied any new focal deficits Objective - Vital Signs Vital signs: Vital Signs Temp 97.4 F L 08/17/17 07:00 Pulse 74 08/17/17 08:00 Resp 18 08/17/17 08:00 BP 168/76 08/17/17 07:00 Pulse Ox 97 08/17/17 07:00 Intake & Output 08/16/17 08/17/17 08/17/17 18:59 06:59 18:59 Intake Total 100 1600 Balance 100 1600 Intake: Intake, IV Titration 1200 Amount Sodium Chloride 0.9% 1, 1200 000 ml @ 100 mls/hr IV . Q10H [facility] Rx#:[id number] Oral 100 400 Other: Voiding Method Toilet Toilet # Voids 2 1 # Bowel Movements 1 - Exam PHYSICAL EXAMINATION: GENERAL: The patient is alert and oriented x3, not in any acute distress. Well developed, well nourished. HEENT: Pupils are round and equally reacting to light. EOMI. No scleral icterus. No conjunctival pallor. Normocephalic, atraumatic. No pharyngeal erythema. No thyromegaly. CARDIOVASCULAR: S1 and S2 present. No murmurs, rubs, or gallops. PULMONARY: Chest is clear to auscultation, no wheezing or crackles. ABDOMEN: Abdomen is distended minimal subjective tenderness and bilateral lower abdominal quadrants sluggish bowel sounds. MUSCULOSKELETAL: No joint swelling or deformity. EXTREMITIES: No cyanosis, clubbing, or pedal edema. NEUROLOGICAL: Gross neurological examination did not reveal any focal deficits. SKIN: No rashes. - Labs CBC & Chem 7: 08/17/17 07:39 08/17/17 07:39 Labs: Abnormal Lab Results - Last 24 Hours (Table) 08/17/17 08/17/17 Range/Units 07:39 07:39 WBC 12.9 H (3.8-10.6) k/uL BUN 21 H (9-20) mg/dL Glucose 110 H (74-99) mg/dL Total Bilirubin 1.4 H (0.2-1.3) mg/dL Total Protein 6.0 L (6.3-8.2) g/dL Albumin 3.1 L (3.5-5.0) g/dL Microbiology - Last 24 Hours (Table) 08/16/17 04:03 Blood Culture - Preliminary Blood No Growth after 24 hours Assessment and Plan Plan: -Abdominal pain, possible ileus: Related to constipation , patient has nausea vomiting today probably has ileus abdominal x-ray will be ordered and NG tube was ordered And the narcotic pain medications will be avoided and patient was started on ketorolac and GI prophylaxis. -Atelectasis patient was advised to to use incentive spirometry I do not believe patient has pneumonia at this time. All the antibiotics will be continued until the intra-abdominal source of infection is completely ruled out because of which patient is presently on Rocephin and metronidazole. -Status post appendectomy -Morbid obesity: Counseling was provided
[2017-08-17] MEDS ORDERED: LIDOCAINE VISCOUS 2% 15 ML CUP MUCOUS MEM ONE (12:18)
[2017-08-17] MEDS: LORazepam 2 MG/ML INJ IV PRN (12:22)
--- NOTE | 2017-08-17 12:58 | XR ---
Abdomen HISTORY: Vomiting Frontal view of the abdomen on 2 images Small bowel loops are distended. Entire abdomen is not included on the exam. No evident pneumoperiton eum. Lung bases not included on the exam. IMPRESSION: Correlate for ileus versus bowel obstruction.
--- NOTE | 2017-08-17 13:18 | P.PN ---
Subjective Progress Note Date: 08/17/17 The patient is seen on rounds. He developed some nausea and vomiting this morning. He's had a small bowel movement. No fevers since admission. His complaint of discomfort with breathing and shoulder pain have resolved. Objective - Vital Signs Vital signs: Vital Signs Temp 97.4 F L 08/17/17 07:00 Pulse 74 08/17/17 08:00 Resp 18 08/17/17 08:00 BP 168/76 08/17/17 07:00 Pulse Ox 97 08/17/17 07:00 Intake & Output 08/16/17 08/17/17 08/17/17 18:59 06:59 18:59 Intake Total 100 1600 Balance 100 1600 Intake: Intake, IV Titration 1200 Amount Sodium Chloride 0.9% 1, 1200 000 ml @ 100 mls/hr IV . Q10H [facility] Rx#:[id number] Oral 100 400 Other: Voiding Method Toilet Toilet # Voids 2 1 # Bowel Movements 1 - Constitutional General appearance: Present: cooperative, mild distress (Anxious regarding at NG tube placement) - Respiratory Respiratory: bilateral: CTA, diminished (At the bases), negative: rhonchi, wheezing - Cardiovascular Rhythm: regular - Gastrointestinal General gastrointestinal: Present: decreased bowel sounds, distended, tenderness (Mild incisional) - Labs CBC & Chem 7: 08/17/17 07:39 08/17/17 07:39 Labs: Abnormal Lab Results - Last 24 Hours (Table) 08/17/17 08/17/17 Range/Units 07:39 07:39 WBC 12.9 H (3.8-10.6) k/uL BUN 21 H (9-20) mg/dL Glucose 110 H (74-99) mg/dL Total Bilirubin 1.4 H (0.2-1.3) mg/dL Total Protein 6.0 L (6.3-8.2) g/dL Albumin 3.1 L (3.5-5.0) g/dL Microbiology - Last 24 Hours (Table) 08/16/17 04:03 Blood Culture - Preliminary Blood No Growth after 24 hours Assessment and Plan (1) Atelectasis Current Visit: Yes Status: Acute Code(s): J98.11 - ATELECTASIS SNOMED Code (s): 64097640 (2) Leukocytosis Current Visit: Yes Status: Acute Code(s): D72.829 - ELEVATED WHITE BLOOD CELL COUNT, UNSPECIFIED SNOMED Code(s): 421410440 (3) Hyperbilirubinemia Current Visit: Yes Status: Acute Code(s): E80.6 - OTHER DISORDERS OF BILIRUBIN METABOLISM SNOMED Code(s): 15334683 Plan: He has become more distended with decreased bowel sounds today. Acute abdominal series confirm an ileus. An NG tube is placed. We'll give him Ativan for the anxiety. Encourage incentive spirometry, this is improved his low-grade fever. Continue antibiotics. Progressing slowly.
[2017-08-17 13:52] VITALS: BMI 34.7
[2017-08-17] MEDS: metroNIDAZOLE-NS PMX 500 MG in SALINE 1 100ML.BAG IVPB SCH (23:49)
[2017-08-18] MEDS: KETOROLAC 30 MG/ML 1 ML VIAL IVP PRN ×3 (03:55→20:00)
[2017-08-18] MEDS: FAMOTIDINE 20 MG/2 ML VIAL IV SCH ×2 (07:48→19:55)
[2017-08-18 07:49] LABS: HCT 41.1 % (39.0-53.0); HGB 14.3 gm/dL (13.0-17.5); MCH 32.1 pg (25.0-35.0); MCHC 34.7 g/dL (31.0-37.0); MCV 92.3 fL (80.0-100.0); Mean Platelet Volume 7.3; Platelet Count 240 k/uL (150-450); RBC 4.45 m/uL (4.30-5.90); RDW 12.8 % (11.5-15.5); WBC 9.7 k/uL (3.8-10.6)
[2017-08-18] MEDS: cefTRIAXone IN SWFI 1,000 MG/10 ML SYRINGE IVP SCH (07:49)
[2017-08-18] MEDS: metroNIDAZOLE-NS PMX 500 MG in SALINE 1 100ML.BAG IVPB SCH ×3 (07:49→23:19)
[2017-08-18 07:58] LABS: Anion Gap 11 mmol/L; Blood Urea Nitrogen 26 mg/dL (9-20); Calcium 8.8 mg/dL (8.4-10.2); Carbon Dioxide 26 mmol/L (22-30); Chloride 105 mmol/L (98-107); Glucose 106 mg/dL (74-99); Potassium 3.4 mmol/L (3.5-5.1); Sodium 142 mmol/L (137-145)
--- NOTE | 2017-08-18 10:59 | P.PN ---
Subjective 37-year-old status post cystectomy recently came back with abdominal pain lower and believed to be secondary to constipation patient also has atelectasis patient will be encouraged ablate patient started having nausea vomiting will obtain a abdominal x-ray and an NG tube to decompress of all patient probably has ileus. Avoid opiate analgesia we will use ketorolac for pain we'll increase R to 30 mg every 6 hourly if needed continue with the GI prophylaxis. 08/18/2017 Patient still has quite a bit of drainage from the NG tube. Although patient had couple bowel movements since last night. Still has sluggish bowel sounds patient may not need antibiotics we'll check with the surgery regarding the antibiotics patient's abdominal pain significantly improved IV fluids will be increased to 1 50 mL/h Will replace her potassium. Constitutional: Denied any fatigue denied any fever. Cardio vascular: denied any chest pain, palpitations Gastrointestinal as mentioned in HPI Pulmonary: Denied any shortness of breath cough Neurologic denied any new focal deficits Objective - Vital Signs Vital signs: Vital Signs Temp 98.5 F 08/18/17 07:00 Pulse 86 08/18/17 08:00 Resp 20 08/18/17 08:00 BP 160/93 08/18/17 07:00 Pulse Ox 93 L 08/18/17 07:00 Intake & Output 08/17/17 08/18/17 08/18/17 18:59 06:59 18:59 Intake Total 700 930 Output Total 850 Balance -150 930 Weight 122.47 kg Intake: Intake, IV Titration 700 900 Amount Sodium Chloride 0.9% 1, 700 800 000 ml @ 100 mls/hr IV . Q10H [facility] Rx#:[id number] metroNIDAZOLE-NS PMX 500 100 mg In Saline 1 100ml.bag @ 100 mls/hr IVPB Q8HR [facility] Rx#:[id number] Oral 30 Output: Gastric Drainage 850 Other: Voiding Method Toilet Toilet Toilet # Voids 2 # Bowel Movements 3 - Exam PHYSICAL EXAMINATION: GENERAL: The patient is alert and oriented x3, not in any acute distress. Well developed, well nourished. HEENT: Pupils are round and equally reacting to light. EOMI. No scleral icterus. No conjunctival pallor. Normocephalic, atraumatic. No pharyngeal erythema. No thyromegaly. CARDIOVASCULAR: S1 and S2 present. No murmurs, rubs, or gallops. PULMONARY: Chest is clear to auscultation, no wheezing or crackles. ABDOMEN: Abdomen is distended minimal subjective tenderness and bilateral lower abdominal quadrants sluggish bowel sounds. NG tube in place still draining bilious fluid MUSCULOSKELETAL: No joint swelling or deformity. EXTREMITIES: No cyanosis, clubbing, or pedal edema. NEUROLOGICAL: Gross neurological examination did not reveal any focal deficits. SKIN: No rashes. - Labs CBC & Chem 7: 08/18/17 07:24 08/18/17 07:24 Labs: Abnormal Lab Results - Last 24 Hours (Table) 08/18/17 Range/Units 07:24 Potassium 3.4 L (3.5-5.1) mmol/L BUN 26 H (9-20) mg/dL Glucose 106 H (74-99) mg/dL Microbiology - Last 24 Hours (Table) 08/16/17 04:03 Blood Culture - Preliminary Blood No Growth after 48 hours Assessment and Plan Plan: -Abdominal pain, ileus: Related to constipation , can you can relax her pain can you with NG tube increase IV fluids -Atelectasis patient was advised to to use incentive spirometry I do not believe patient has pneumonia at this time. All the antibiotics will be continued until the intra-abdominal source of infection is completely ruled out because of which patient is presently on Rocephin and metronidazole. -Status post appendectomy -Morbid obesity: Counseling was provided
--- NOTE | 2017-08-18 12:20 | P.PN ---
Subjective Progress Note Date: 08/18/17 Principal diagnosis: Atelectasis, ileus The patient's feeling much better today. He is doing better with his incentive spirometry. He is hungry. Passing some liquid stools. Objective - Vital Signs Vital signs: Vital Signs Temp 98.5 F 08/18/17 07:00 Pulse 86 08/18/17 08:00 Resp 20 08/18/17 08:00 BP 160/93 08/18/17 07:00 Pulse Ox 93 L 08/18/17 07:00 Intake & Output 08/17/17 08/18/17 08/18/17 18:59 06:59 18:59 Intake Total 700 930 Output Total 850 Balance -150 930 Weight 122.47 kg Intake: Intake, IV Titration 700 900 Amount Sodium Chloride 0.9% 1, 700 800 000 ml @ 100 mls/hr IV . Q10H [facility] Rx#:[id number] metroNIDAZOLE-NS PMX 500 100 mg In Saline 1 100ml.bag @ 100 mls/hr IVPB Q8HR [facility] Rx#:[id number] Oral 30 Output: Gastric Drainage 850 Other: Voiding Method Toilet Toilet Toilet # Voids 2 # Bowel Movements 3 - Constitutional General appearance: Present: cooperative, no acute distress - Respiratory Respiratory: bilateral: CTA, diminished (Mildly at the bases), negative: wheezing - Cardiovascular Rhythm: regular - Gastrointestinal General gastrointestinal: Present: decreased bowel sounds (Markedly decreased bowel sounds), distended (Mildly), soft Localized gastrointestinal: surgical scar: diffuse (Incisions are healing) - Labs CBC & Chem 7: 08/18/17 07:24 08/18/17 07:24 Labs: Abnormal Lab Results - Last 24 Hours (Table) 08/18/17 Range/Units 07:24 Potassium 3.4 L (3.5-5.1) mmol/L BUN 26 H (9-20) mg/dL Glucose 106 H (74-99) mg/dL Microbiology - Last 24 Hours (Table) 08/16/17 04:03 Blood Culture - Preliminary Blood No Growth after 48 hours Assessment and Plan (1) Atelectasis Current Visit: Yes Status: Acute Code(s): J98.11 - ATELECTASIS SNOMED Code (s): 18260412 (2) Leukocytosis Current Visit: Yes Status: Acute Code(s): D72.829 - ELEVATED WHITE BLOOD CELL COUNT, UNSPECIFIED SNOMED Code(s): 126393045 (3) Hyperbilirubinemia Current Visit: Yes Status: Acute Code(s): E80.6 - OTHER DISORDERS OF BILIRUBIN METABOLISM SNOMED Code(s): 65273437 (4) Ileus Current Visit: Yes Status: Acute Code(s): K56.7 - ILEUS, UNSPECIFIED SNOMED Code(s): 285383395 Plan: Clinically the patient's improving. He's doing better with the incentive spirometry. No fever and a normal white count. The NG tube still has fairly significant output and his bowel sounds are hypoactive. We'll continue NG tube today. Hydrate him and replace potassium. He's progressing slowly. Questions from the patient and mother were answered.
[2017-08-18] MEDS: POTASSIUM CHLORIDE 20 MEQ in WATER FOR INJECTION 1 100ML.BAG IVPB SCH ×2 (12:36→13:22)
[2017-08-18] MEDS ORDERED: ONDANSETRON 4 MG/2 ML VIAL IVP PRN (15:12)
[2017-08-18] MEDS: SODIUM CHLORIDE 0.9% 1,000 ML IV SCH ×4 (19:56→22:29)
[2017-08-19] MEDS: SODIUM CHLORIDE 0.9% 1,000 ML IV SCH ×4 (05:33→21:38)
[2017-08-19] MEDS: metroNIDAZOLE-NS PMX 500 MG in SALINE 1 100ML.BAG IVPB SCH ×3 (07:44→23:33)
[2017-08-19 08:11] LABS: HCT 39.3 % (39.0-53.0); HGB 13.1 gm/dL (13.0-17.5); MCHC 33.2 g/dL (31.0-37.0); MCV 93.2 fL (80.0-100.0); Mean Platelet Volume 7.6; Platelet Count 244 k/uL (150-450); RBC 4.22 m/uL (4.30-5.90); WBC 8.8 k/uL (3.8-10.6)
[2017-08-19 08:20] LABS: Anion Gap 13 mmol/L; Blood Urea Nitrogen 24 mg/dL (9-20); Calcium 8.3 mg/dL (8.4-10.2); Carbon Dioxide 24 mmol/L (22-30); Chloride 111 mmol/L (98-107); Glucose 103 mg/dL (74-99); Potassium 3.8 mmol/L (3.5-5.1); Sodium 148 mmol/L (137-145)
[2017-08-19] MEDS: FAMOTIDINE 20 MG/2 ML VIAL IV SCH ×2 (09:40→21:16)
[2017-08-19] MEDS: cefTRIAXone IN SWFI 1,000 MG/10 ML SYRINGE IVP SCH (09:41)
--- NOTE | 2017-08-19 10:36 | P.PN ---
Subjective Progress Note Date: 08/19/17 Principal diagnosis: Atelectasis, ileus The patient seen on rounds today. He says he feels great. He is been walking in the halls. Doing better with this incentive spirometry. Still some loose stools. Objective - Vital Signs Vital signs: Vital Signs Temp 97.5 F L 08/19/17 07:00 Pulse 71 08/19/17 07:00 Resp 16 08/19/17 07:00 BP 162/95 08/19/17 07:00 Pulse Ox 94 L 08/19/17 07:00 Intake & Output 08/18/17 08/19/17 08/19/17 18:59 06:59 18:59 Intake Total 250 730 0 Output Total 800 Balance -550 730 0 Intake: Intake, IV Titration 250 700 Amount Sodium Chloride 0.9% 1, 150 600 000 ml @ 150 mls/hr IV . Q6H40M [facility] Rx#:[id number] metroNIDAZOLE-NS PMX 500 100 100 mg In Saline 1 100ml.bag @ 100 mls/hr IVPB Q8HR [facility] Rx#:[id number] Oral 30 0 Output: Gastric Drainage 800 Other: Voiding Method Toilet Toilet # Voids 2 - Constitutional General appearance: Present: cooperative, no acute distress - Respiratory Respiratory: bilateral: CTA - Gastrointestinal General gastrointestinal: Present: decreased bowel sounds, soft. Absent: distended Localized gastrointestinal: surgical scar: diffuse (Incisions healing) - Labs CBC & Chem 7: 08/19/17 07:35 08/19/17 07:35 Labs: Abnormal Lab Results - Last 24 Hours (Table) 08/19/17 08/19/17 Range/Units 07:35 07:35 RBC 4.22 L (4.30-5.90) m/uL Sodium 148 H (137-145) mmol/L Chloride 111 H (98-107) mmol/L BUN 24 H (9-20) mg/dL Glucose 103 H (74-99) mg/dL Calcium 8.3 L (8.4-10.2) mg/dL Microbiology - Last 24 Hours (Table) 08/16/17 04:03 Blood Culture - Preliminary Blood No Growth after 72 hours Assessment and Plan (1) Atelectasis Current Visit: Yes Status: Acute Code(s): J98.11 - ATELECTASIS SNOMED Code (s): 12377165 (2) Leukocytosis Current Visit: Yes Status: Acute Code(s): D72.829 - ELEVATED WHITE BLOOD CELL COUNT, UNSPECIFIED SNOMED Code(s): 894737233 (3) Hyperbilirubinemia Current Visit: Yes Status: Acute Code(s): E80.6 - OTHER DISORDERS OF BILIRUBIN METABOLISM SNOMED Code(s): 13311574 (4) Ileus Current Visit: Yes Status: Acute Code(s): K56.7 - ILEUS, UNSPECIFIED SNOMED Code(s): 693135412 Plan: We'll place the NG tube to gravity. If he is able to tolerate this, it'll be discontinued later today and will start him on a clear liquid diet. His atelectasis is improving. He's not having any further fevers and his white count is normal. He's progressing slowly.
--- NOTE | 2017-08-19 17:53 | P.PN ---
Subjective Progress Note Date: 08/19/17 Progress note being dictated for Dr. Hanson Interval history:37-year-old status post cystectomy recently came back with abdominal pain lower and believed to be secondary to constipation patient also has atelectasis patient will be encouraged ablate patient started having nausea vomiting will obtain a abdominal x-ray and an NG tube to decompress of all patient probably has ileus. Avoid opiate analgesia we will use ketorolac for pain we'll increase R to 30 mg every 6 hourly if needed continue with the GI prophylaxis. 08/18/2017 Patient still has quite a bit of drainage from the NG tube. Although patient had couple bowel movements since last night. Still has sluggish bowel sounds patient may not need antibiotics we'll check with the surgery regarding the antibiotics patient's abdominal pain significantly improved IV fluids will be increased to 1 50 mL/h Will replace her potassium. Constitutional: Denied any fatigue denied any fever. Cardio vascular: denied any chest pain, palpitations Gastrointestinal as mentioned in HPI Pulmonary: Denied any shortness of breath cough Neurologic denied any new focal deficits 08/19/2017. NG clamped, no nausea vomiting. Denies abdominal pain. Positive loose bowel movements. Ambulating without difficulty. Afebrile. Objective - Vital Signs Vital signs: Vital Signs Temp 97.5 F L 08/19/17 07:00 Pulse 71 08/19/17 07:00 Resp 16 08/19/17 07:00 BP 162/95 08/19/17 07:00 Pulse Ox 94 L 08/19/17 07:00 Intake & Output 08/18/17 08/19/17 08/19/17 18:59 06:59 18:59 Intake Total 250 730 0 Output Total 800 350 Balance -550 730 -350 Intake: Intake, IV Titration 250 700 Amount Sodium Chloride 0.9% 1, 150 600 000 ml @ 150 mls/hr IV . Q6H40M [facility] Rx#:[id number] metroNIDAZOLE-NS PMX 500 100 100 mg In Saline 1 100ml.bag @ 100 mls/hr IVPB Q8HR [facility] Rx#:[id number] Oral 30 0 Output: Gastric Drainage 800 350 Other: Voiding Method Toilet Toilet # Voids 2 - Exam GENERAL: The patient is alert and oriented x3, not in any acute distress. Well developed, well nourished. HEENT: Pupils are round and equally reacting to light. EOMI. No scleral icterus. No conjunctival pallor. Normocephalic, atraumatic. No pharyngeal erythema. No thyromegaly. CARDIOVASCULAR: S1 and S2 present. No murmurs, rubs, or gallops. PULMONARY: Chest is clear to auscultation, no wheezing or crackles. ABDOMEN: Abdomen is distended minimal subjective tenderness and bilateral lower abdominal quadrants sluggish bowel sounds. NG tube in place still draining bilious fluid MUSCULOSKELETAL: No joint swelling or deformity. EXTREMITIES: No cyanosis, clubbing, or pedal edema. NEUROLOGICAL: Gross neurological examination did not reveal any focal deficits. SKIN: No rashes. - Labs CBC & Chem 7: 08/19/17 07:35 08/19/17 07:35 Labs: Abnormal Lab Results - Last 24 Hours (Table) 08/19/17 08/19/17 Range/Units 07:35 07:35 RBC 4.22 L (4.30-5.90) m/uL Sodium 148 H (137-145) mmol/L Chloride 111 H (98-107) mmol/L BUN 24 H (9-20) mg/dL Glucose 103 H (74-99) mg/dL Calcium 8.3 L (8.4-10.2) mg/dL Microbiology - Last 24 Hours (Table) 08/16/17 04:03 Blood Culture - Preliminary Blood No Growth after 72 hours Assessment and Plan Assessment: -Abdominal pain, ileus: Related to constipation -Atelectasis patient was advised to to use incentive spirometry, low suspicion of pneumonia. All the antibiotics will be continued until the intra-abdominal source of infection is completely ruled out because of which patient is presently on Rocephin and metronidazole. -Status post appendectomy -Morbid obesity: Counseling was provided Plan: Continue on current medication regime ,monitoring and symptomatic treatment. Aggressive pulmonary toileting, incentive spirometer reinforced. NG currently clamped.Potential DC of NG tube with diet advancement as per surgery. The impression and plan of care has been dictated as directed. : I performed a history and examination of this patient, discussed the same with the dictator. I agree with the dictator's note ,documented as a scribe. Any additional findings or plans will be noted.
[2017-08-20] MEDS: LORazepam 2 MG/ML INJ IV PRN (02:22)
[2017-08-20] MEDS: SODIUM CHLORIDE 0.9% 1,000 ML IV SCH ×2 (06:11→10:59)
[2017-08-20] MEDS: FAMOTIDINE 20 MG/2 ML VIAL IV SCH (07:45)
[2017-08-20] MEDS: metroNIDAZOLE-NS PMX 500 MG in SALINE 1 100ML.BAG IVPB SCH (07:46)
[2017-08-20 08:45] VITALS: RESP 18
[2017-08-20] MEDS: cefTRIAXone IN SWFI 1,000 MG/10 ML SYRINGE IVP SCH (09:20)
--- NOTE | 2017-08-20 11:26 | P.PN ---
Subjective Progress Note Date: 08/20/17 Principal diagnosis: Atelectasis, ileus The patient is feeling better. The NG has been removed. He's tolerating clear liquids. No nausea or vomiting. Having frequent small loose stools. Objective - Vital Signs Vital signs: Vital Signs Temp 98.2 F 08/20/17 07:00 Pulse 71 08/20/17 07:00 Resp 18 08/20/17 07:00 BP 158/90 08/20/17 07:00 Pulse Ox 94 L 08/20/17 07:00 Intake & Output 08/19/17 08/20/17 08/20/17 18:59 06:59 18:59 Intake Total 0 1800 Output Total 350 Balance -350 1800 Weight 122.47 kg Intake: IV 1800 Sodium Chloride 0.9% 1, 1800 000 ml @ 150 mls/hr IV . Q6H40M [facility] Rx#:[id number] Oral 0 Output: Gastric Drainage 350 Other: Voiding Method Toilet Toilet Toilet # Voids 8 # Bowel Movements 8 - Constitutional General appearance: Present: cooperative, no acute distress - Respiratory Respiratory: bilateral: CTA - Gastrointestinal General gastrointestinal: Present: distended (Mildly distended), normal bowel sounds, soft. Absent: tenderness - Labs CBC & Chem 7: 08/19/17 07:35 08/19/17 07:35 Labs: Microbiology - Last 24 Hours (Table) 08/16/17 04:03 Blood Culture - Preliminary Blood No Growth after 96 hours Assessment and Plan (1) Atelectasis Current Visit: Yes Status: Acute Code(s): J98.11 - ATELECTASIS SNOMED Code (s): 18168457 (2) Leukocytosis Current Visit: Yes Status: Acute Code(s): D72.829 - ELEVATED WHITE BLOOD CELL COUNT, UNSPECIFIED SNOMED Code(s): 851455249 (3) Hyperbilirubinemia Current Visit: Yes Status: Acute Code(s): E80.6 - OTHER DISORDERS OF BILIRUBIN METABOLISM SNOMED Code(s): 48792680 (4) Ileus Current Visit: Yes Status: Acute Code(s): K56.7 - ILEUS, UNSPECIFIED SNOMED Code(s): 929296787 Plan: He is improving surgically. Will advance his diet. Due to the diarrhea and his being on antibiotics we'll check a C. difficile. Likely ready for discharge within the next day or 2.
[2017-08-20] MEDS ORDERED: TEMAZEPAM 30 MG CAP PO PRN (11:28)
[2017-08-20 15:38] VITALS: BP 152/92; PULSE 88; TEMP 98.1
--- NOTE | 2017-08-20 15:45 | P.DS ---
Providers Date of admission: 08/16/17 07:03 Expected date of discharge: 08/20/17 Attending physician: Natalya Hanson Consults: 08/16/17 07:03 Consult Physician Routine Consulting Provider: Nadia Velazquez Consult Reason/Comments: Post-surgical patient Do you want consulting provider notified?: Yes Primary care physician: Stated None Hospital Course: Final Diagnoses; -Abdominal pain, ileus: Related to constipation in a patient status post recent appendectomy on [place]. -Atelectasis patient was advised to to use incentive spirometry, low suspicion of pneumonia. -Status post appendectomy -Morbid obesity: Counseling was provided Hospital course: This is a 37-year-old status post appendectomy recently came back with abdominal pain accompanied by nausea ,vomiting attributed to constipation. Abdominal x-ray reported ileus versus bowel obstruction .evaluated by surgery. NG tube maintained for decompression. Opiate analgesia avoided, psin controlled with ketorolac. Maintained on IV fluid hydration, empiric antibiotics of Rocephin and metronidazole. Developed diarrhea, tested negative for C. difficile. Significant clinical improvement. Patient is cleared by surgery for discharge. Patient is being discharged home in a stable condition with guarded prognosis. Physical Exam:VSS, alert and oriented x3, no acute distress. CARDIOVASCULAR: S1 and S2 present. No murmurs, rubs, or gallops. PULMONARY: Chest is clear to auscultation, no wheezing or crackles. ABDOMEN: Abdomen is soft, nontender, positive bowel sounds. NEUROLOGICAL: No focal deficits. The impression and plan of care has been dictated as directed. : I performed a history and examination of this patient, discussed the same with the dictator. I agree with the dictator's note ,documented as a scribe. Any additional findings or plans will be noted. Time taken: 35 minutes Patient Condition at Discharge: Stable Plan - Discharge Summary Discharge Rx Participant: No New Discharge Prescriptions: New Famotidine [Pepcid] 20 mg PO BID tab Discontinued Naproxen [Naprosyn] 375 mg PO Q12HR #30 tablet Amoxicillin/Potassium Clav [Augmentin 875-125 Tablet] 1 tab PO Q12HR Discharge Medication List Famotidine [Pepcid] 20 mg PO BID tab 08/20/17 [Rx] Follow up Appointment(s)/Referral(s): Rosalind Chaves MD [REFERRING] - 3 Days Nadia Velazquez DO [Doctor of Osteopathic Medicine] - As Needed () Ambulatory/Diagnostic Orders: Complete Blood Count w/diff [LAB.AMB] Time Frame: 3 Days, Location: Determined By Patient Patient Instructions/Handouts: Laxative, Stool Softeners (By mouth), Polyethylene Glycol 3350 (By mouth), Leukocytosis (DC), Atelectasis (DC) Activity/Diet/Wound Care/Special Instructions: Follow-up with surgery as advised Diet: Soft low fiber Activity: Limited until follow up Manual BP every morning, maintain log and take to follow-up visit with PCP for further recommendations Insulin spirometer every hour 10, awake Miralax -hold if diarrhea
[2017-08-20] MEDS ORDERED: metroNIDAZOLE 500 MG TAB PO SCH (16:00)
[2017-08-20] MEDS ORDERED: FAMOTIDINE 20 MG TAB PO SCH (21:00)
== END 2017-08-20 14:30 | disposition home or self-care (01) | DRG 389 ==
LOC: EC 03:42 → 5MS5E 07:03
PROVIDERS: ADMIT Internal Medicine; ATTEND Internal Medicine
DX: K56.7 Ileus, unspecified (principal); J98.11 Atelectasis; E66.01 Morbid (severe) obesity due to excess calories; R17 Unspecified jaundice; Z90.6 Acquired absence of other parts of urinary tract; Z81.8 Family history of other mental and behavioral disorders; Z82.49 Family history of ischemic heart disease and other diseases of the circulatory system; Z83.3 Family history of diabetes mellitus; Z87.891 Personal history of nicotine dependence; Z90.49 Acquired absence of other specified parts of digestive tract; Z68.34 Body mass index [BMI] 34.0-34.9, adult; Z71.3 Dietary counseling and surveillance; Z79.891 Long term (current) use of opiate analgesic; Z79.1 Long term (current) use of non-steroidal anti-inflammatories (NSAID); Z79.899 Other long term (current) drug therapy; T40.2X5A Adverse effect of other opioids, initial encounter; R19.7 Diarrhea, unspecified; Z88.1 Allergy status to other antibiotic agents; E78.5 Hyperlipidemia, unspecified
CPT/HCPCS: 36415; 71046; 74018; 80048; 80053; 81003; 82248; 83605; 85025; 85027; 87040; 87324; 87493; 96361; 96374; 96375; 96376; 99284